=== PATIENT | female | born 1935 | race Caucasian/White ===

== ENCOUNTER 2024-03-03 16:36 | Outpatient (AMB) | payer MEDICARE, SELFPAY ==
--- NOTE | 2024-03-03 16:38 | HO.NEPHOV_ITS ---
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 She has stage IV CKD. She has had episodes of BRADEN in the past. She has a history of pulmonary edema in the past. MRA showed mild renal artery stenosis. She has significant generalized atherosclerosis In November she had a hip replacement. Recently she was in [facility] for accelerated hypertension. Clonidine pills were added in addition to the Catapres patch. Today she is accompanied by her daughter. Overall blood pressure has been well controlled he has no headache nausea vomiting. No urinary symptoms. She has leg edema. [facility] Surgical History (Updated 03/03/24 @ 16:47 by Yola Story MA) History of cataract surgery S/P hip replacement Social History (Updated 03/03/24 @ 16:47 by Yola Story MA) Alcohol intake: never Patient Tobacco Use Status: Never used Tobacco Physical Exam Vital Signs: Last Vital Signs Pulse 64 03/03/24 16:39 BP 134/60 03/03/24 16:39 Pulse Ox 95 03/03/24 16:39 Oxygen Delivery Method Room Air 03/03/24 16:39 BMI result Body Mass Index 28.8 Const General: comfortable Nutritional Appearance: well nourished Orientation/consciousness: patient oriented x3 HEENT Head: No normal to inspection Mouth: moist mucous membranes Neck Neck: Yes supple and Yes no JVD Resp Auscultation: clear to auscultation bilaterally, no rales and rub present Cardio Jugular venous distension: no JVD Palpation: no palpable S3 and no palpable S4 Heart sounds: no rubs GI Palpation (GI): Soft to palpation and nontender Percussion: No Fluid wave present General: Yes no CVA tenderness Back/Spine/Pelvis Back: no CVA tenderness Skin General skin exam: no rashes or lesions noted Neuro General: patient oriented x3 Extrem General: No clubbing and Yes edema Results Reviewed Results Reviewed: Labs from [facility] Creatinine is at baseline Nephrology Results: No Data to Display Assessment & Plan Assessment & Plan (1) HTN (hypertension): Code(s): I10 - Essential (primary) hypertension Category: Medical Plan 88-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 Based on home blood pressure readings appears that her blood pressure is better controlled. Renal function stable at baseline. She has no signs or symptoms of uremia. She is leg edema disease most likely due to high dose of nifedipine. She is on high dose of clonidine along with carvedilol I am concerned that she could develop bradycardia. I will decrease carvedilol down to 12.5 mg b.i.d. from 18.75 mg b.i.d.. Encouraged her to stay on low-sodium diet and continue monitoring her blood pressure at home. She is on cinacalcet for secondary hyperparathyroidism I will recheck the intact PTH and calcium levels prior to next visit. She is mild anemia due to CKD No absolute indication for Epogen yet. I will continue monitor closely. Orders: Orders Parathyroid Hormone Intact 3 Weeks N18.9 - Chronic kidney disease, unspecified Complete Blood Count Auto Diff 3 Weeks N18.30 - Chronic kidney disease, stage 3 unspecified, N18.9 - Chronic kidney disease, unspecified Basic Metabolic Panel 3 Weeks N18.9 - Chronic kidney disease, unspecified Medications: New carvedilol 12.5 mg PO BID 60 tabs 0RF Coding Level of Care Code Est Pt Level 4 (56372) Diagnoses HTN (hypertension) I10
[2024-03-03 16:39] VITALS: BP 134/60; PULSE 64; O2SAT 95; BMI 28.8
== END 2024-03-03 17:03 | disposition home or self-care (01) ==
LOC: HO.HKAE 16:36
PROVIDERS: PCP Internal Medicine; Visit Provider Internal Medicine Hypertension Specialist
DX: I10 Essential (primary) hypertension (principal)
CPT/HCPCS: 99212; 99214

== ENCOUNTER → 2024-03-03 16:36 | Outpatient (BNVA) | payer MEDICARE, SELFPAY | PROVIDERS: PCP Internal Medicine; Visit Provider Internal Medicine Hypertension Specialist | DX: I12.9 Hypertensive chronic kidney disease with stage 1 through stage 4 chronic kidney disease, or unspecified chronic kidney disease (principal); N18.4 Chronic kidney disease, stage 4 (severe); I1A.0 Resistant hypertension | CPT/HCPCS: 99212 ==

== ENCOUNTER 2024-04-07 16:35 | Outpatient (AMB) | payer MEDICARE, SELFPAY ==
[2024-04-07 16:38] VITALS: BP 136/44; PULSE 72; O2SAT 95; BMI 27.7
--- NOTE | 2024-04-07 16:38 | HO.NEPHOV_ITS ---
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 Accompanied by: Child Allergies chlorthalidone Adverse Reaction (Verified 03/03/24 16:41) Unknown shellfish Allergy (Unknown, Uncoded 04/06/24 08:56) Unknown Medication List - Last Reconciled 04/07/24 by León Burnette MD aspirin 81 mg PO DAILY atorvastatin 10 mg PO DAILY carvedilol 12.5 mg PO BID cinacalcet 30 mg PO DAILY clonidine 1 patch transdermal QWEEK clonidine HCl 0.1 mg PO TID clopidogrel (Plavix) 75 mg PO DAILY cyanocobalamin (vitamin B-12) 500 mcg PO DAILY docusate sodium (Colace) 100 mg PO DAILY fenofibrate micronized 200 mg PO DAILY ferrous sulfate (Feosol) 325 mg PO DAILY hydralazine 100 mg PO TID latanoprost 0.005% 1 drp ophthalmic (eye) QPM levothyroxine 50 mcg PO DAILY nifedipine ER 120 mg (2 x 60 mg) PO DAILY pantoprazole 40 mg PO DAILY sennosides-docusate sodium 8.6-50 mg (Senna Plus) 1 tab-cap PO DAILY torsemide 40 mg PO BID HPI Comments Details: Ting is as 88-year-old woman with a history of longstanding hypertension which has been rather difficult to control. She has stage IV CKD. She has had episodes of BRADEN in the past. She has a history of pulmonary edema in the past. MRA showed mild renal artery stenosis. She has significant generalized atherosclerosis In November she had a hip replacement. Recently she was in [facility] for accelerated hypertension. Clonidine pills were added in addition to the Catapres patch. Today she is accompanied by her daughter. Overall blood pressure has been well controlled he has no headache nausea vomiting. No urinary symptoms. She has leg edema. 04/07/24 She was on high dose of clonidine along with carvedilol - concerned that she could develop bradycardia. DEcreased carvedilol down to 12.5 mg b.i.d. from 18.75 mg b.i.d. Increased urinary frequency No Torsemide 40 mg BID Lost 6 lbs in 1 month [facility] Surgical History History of cataract surgery S/P hip replacement Social History Alcohol intake: never Patient Tobacco Use Status: Never used Tobacco Physical Exam Vital Signs: Last Vital Signs Pulse 72 04/07/24 16:38 BP 136/44 L 04/07/24 16:38 Pulse Ox 95 04/07/24 16:38 Oxygen Delivery Method Room Air 04/07/24 16:38 BMI result Body Mass Index 27.7 Const General: comfortable; No acute distress Orientation/consciousness: patient oriented x3 Eyes General: appearance normal, both eyes and all related structures Visual Brewer: normal visual brewer by confrontation Neck Neck: Yes supple and Yes no JVD Resp Effort & Inspection: normal respiratory effort and respiratory effort not decreased Auscultation: rhonchi Cardio Palpation: no palpable S3 and no palpable S4 Heart sounds: no rubs GI Inspection: Yes normal to inspection Palpation (GI): Soft to palpation Percussion: Yes normal to percussion Auscultation: normal bowel sounds General: Yes no CVA tenderness Back/Spine/Pelvis Back: no CVA tenderness Skin General skin exam: no petechiae and no purpura Neuro General: patient oriented x3 and no focal motor deficits Extrem General: No clubbing and No edema Results Reviewed Nephrology Results: No Data to Display Assessment & Plan Assessment & Plan (1) HTN (hypertension): Code(s): I10 - Essential (primary) hypertension Category: Medical Plan 88-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 Based on home blood pressure readings appears that her blood pressure is better controlled. Renal function stable at baseline. She has no signs or symptoms of uremia. She is leg edema disease most likely due to high dose of nifedipine. . Encouraged her to stay on low-sodium diet and continue monitoring her blood pressure at home. She is on cinacalcet for secondary hyperparathyroidism Change Cinacalcet to 30 mcg daily She is mild anemia due to CKD No absolute indication for Epogen yet. DEcrease Torsemide to 20 mg Q PM Keep 40 mg qAM Watch HgB Medications: Changed From cinacalcet 60 mg PO .every other day To cinacalcet 30 mg PO DAILY 90 tabs 3RF Coding Level of Care Code Est Pt Level 4 (01310) Diagnoses HTN (hypertension) I10
== END 2024-04-07 17:00 | disposition home or self-care (01) ==
PROVIDERS: PCP Internal Medicine; Visit Provider Internal Medicine Hypertension Specialist
DX: I10 Essential (primary) hypertension (principal)
CPT/HCPCS: 99214

== ENCOUNTER → 2024-04-07 16:35 | Outpatient (BNVA) | payer MEDICARE, SELFPAY | PROVIDERS: PCP Internal Medicine; Visit Provider Internal Medicine Hypertension Specialist | DX: I12.9 Hypertensive chronic kidney disease with stage 1 through stage 4 chronic kidney disease, or unspecified chronic kidney disease (principal); N18.4 Chronic kidney disease, stage 4 (severe) | CPT/HCPCS: 99212 ==